=== PATIENT | female | born 1975 | race Caucasian/White ===

== ENCOUNTER 2017-03-03 01:29 | Observation (INO) ==
[2017-03-03] MEDS ORDERED: 0.9 % Sodium Chloride 1,000 ML IVC ONE (01:43)
[2017-03-03] MEDS ORDERED: Insulin Regular, Human 100 UNIT/ML IV ONE (01:43)
[2017-03-03] MEDS ORDERED: Levofloxacin 500 MG/100 ML 500 MG/100 ML BAG IVPB ONE (01:43)
[2017-03-03 01:54] LABS: Hematocrit 41.9 % (35.3-44.9); Hemoglobin 13.8 g/dL (11.5-15.4); Mean Corpuscular HGB Conc 32.9 g/dL (31.6-35.5); Mean Corpuscular Hemoglobin 29.2 pg (28.0-33.3); Mean Corpuscular Volume 88.8 fL (83.0-100.0); Mean Platelet Volume 9.8 fL (9.4-12.4); Platelet Count 169 K/mcL (140-400); Red Blood Count 4.72 M/mcL (3.82-4.97); Red Cell Distribution Width 13.7 % (11.5-14.5)
[2017-03-03 02:01] LABS: Beta-Hydroxybutyric Acid 0.18 mmol/L (0.02-0.27); INR 1.1; Prothrombin Time 12.1 Seconds (9.4-12.1)
[2017-03-03 02:04] LABS: Activated Partial Thrombo Time 28.6 Seconds (26.0-36.0)
[2017-03-03 02:11] LABS: BUN/Creatinine Ratio 13 (6-26); Blood Urea Nitrogen 12 mg/dL (7-20); Calcium 9.3 mg/dL (8.6-10.8); Carbon Dioxide 26 mEq/L (19-29); Chloride 95 mEq/L (98-109); Osmolality,Calculated 307 (280-300); Potassium 4.4 mEq/L (3.5-4.5); Sodium 135 mEq/L (136-145); eGFR For African Americans > 60 (> 60); eGFR For Non-African Americans > 60 (> 60)
[2017-03-03 02:12] LABS: Glucose 580 mg/dL (70-99)
[2017-03-03 02:19] LABS: Anisocytosis 1+ (Not Present); Dohle Bodies Present (Not Present); Lymphocytes # 0.7 K/mcL (0.6-4.6); Neutrophils # 22.8 K/mcL (1.6-8.9)
[2017-03-03 02:20] LABS: Basophilic Stippling 1+ (Not Present)
--- NOTE | 2017-03-03 02:20 | Emergency Department Note ---
Disposition Clinical Impression: Acute exacerbation of chronic obstructive airways disease, Diabetes Disposition: Admitted As Inpatient Condition: Fair Instructions: Emphysema (ED) Referrals: NO,PCP [Primary Care Provider] - Forms: Work/School Release, ED Satisfaction Letter Time of Disposition: 02:25 ([facility] [facility]) SOB HPI - General Chief Complaint: ED General Medical Stated Complaint: high sugar Time Seen by Provider: 03/03/17 01:35 Source: patient Mode of arrival: ambulatory Limitations: no limitations Nursing Notes Reviewed: Yes Vital Signs Reviewed: Yes - History of Present Illness Patient ambulates into the emergency room with increasing shortness of breath that has been going on past couple days patient that today it came at the insistence of family and friends when her glucose was markedly elevated denies though any blurred vision double vision has having elevated sugars having cough congestion and phlegm production weakness nothing else on her normal she denies diarrhea melena hematochezia hematemesis she denies any rashes or lesions patient that was recently diagnosed with diabetes us in 3 months ago some oral hypoglycemics has not been placed on medications and does not have a low reading on her machine since been placed on metformin Pt Subjective Complaint: shortness of breath, pain with inspiration Onset (ago): month(s) Context: other (took glucose and machine read high) Severity: none Consistency/Duration: constant Improves with: nothing Worsens with: nothing Known history of: COPD, recurrent pneumonia Associated symptoms: Reports: cough, sputum production, polyuria, polydipsia. Denies: chest pain, pain with inspiration, fever, wheezing, orthopnea, lower extremity pain, parasthesias, palpitations, hemoptysis, diaphoresis, nausea/ vomiting, syncope, abdominal pain, rash, sense of impending doom Treatment prior to arrival: oxygen, bronchodilator, other Cough present: Yes Cough Description: Involuntary, Productive, Weak, Wheezy Cough Frequency: Continuous Sputum production: Yes Sputum Amount: Small Sputum Color: Yellow, Green - Related Data Home Medications Medication Instructions Recorded Confirmed Albuterol Sulfate [Proair 180 mcg IH Q4H PRN 07/18/15 12/25/16 Respiclick] PredniSONE 30 mg PO DAILY 07/18/15 12/25/16 Ipratropium/Albuterol Neb [Duoneb] 3 ml IH TID 09/12/15 12/25/16 Oxygen 4 l IH AD 09/12/15 12/25/16 Budesonide Neb [Pulmicort Neb] 0.5 mg IH BIDR 05/23/16 12/25/16 Formoterol Fumarate [Perforomist] 20 mcg IH QAM 05/23/16 12/25/16 Fluticasone/Vilanterol [Breo 1 each IH BID 12/25/16 12/25/16 Ellipta 100-25 Mcg INH] Ranitidine HCl [Heartburn Relief] 150 mg PO HS 12/25/16 12/25/16 Lisinopril 03/03/17 Ventolin Hfa 03/03/17 metFORMIN 03/03/17 Allergies Allergy/AdvReac Type Severity Reaction Status Date / Time No Known Allergies Allergy Verified 05/24/16 21:27 Constitutional: Reports: weakness. Denies: fever, chills Eyes: Denies: eye pain, eye discharge ENT ED: Denies: ear pain Cardiovascular: Denies: chest pain, palpitations Respiratory: Reports: cough, wheezes, sputum production. Denies: dyspnea Gastrointestinal: Denies: abdominal pain, nausea Genitourinary: Denies: urgency, dysuria, frequency Musculoskeletal: Denies: back pain, neck pain Integumentary: Denies: rash, abrasion Neurological: Denies: headache, weakness Psychiatric: Denies: anxiety, depression Endocrine: Denies: fatigue Hematological/Lymphatic: Denies: easy bleeding Allergic/Immunologic: Denies: facial swelling Past Medical History - Past Medical History Attestation: Yes The following information was validated with the patient. 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 COORDINATOR history - Social History Smoking Status: Current every day smoker Smokeless Tobacco Status: No Alcohol use: Reports: none Drug use: Reports: none Physical Exam - General Limitations: no limitations General appearance: alert, in no apparent distress, anxious, cachectic - Head Head exam: atraumatic, normocephalic, normal inspection - Eye Eye exam: Present: normal appearance, PERRL, EOMI - ENT ENT exam: normal exam, normal oropharynx, mucous membranes moist, TM's normal bilaterally, normal external ear exam - Neck Neck exam: Present: normal inspection, full ROM, trachea midline - Chest Chest inspection: Present: normal inspection, symmetric chest wall rise - Respiratory Respiratory exam: Present: normal lung sounds bilaterally, wheezes - Cardiovascular Cardiovascular exam: Present: regular rate, normal rhythm, normal heart sounds - Abdominal Exam Abdominal exam: Present: soft, Non-Tender, normal bowel sounds. Absent: mass, pulsatile mass - Extremities Exam Extremities exam: Present: normal inspection, full ROM, normal capillary refill. Absent: tenderness, joint swelling - Expanded Lower Extremity Exam Neurovascular/Tendon exam: Present: normal capillary refill, normal fine/light touch Gait: other (speed of ambulation limited to respitory status ) - Back Exam Back exam: Present: normal inspection, full ROM, other (marked Kyphosis). Absent: muscle spasm - Neurological Exam Neurological exam: Present: alert, oriented X3, CN II-XII intact - Psychiatric Psychiatric exam: Present: normal affect, normal mood - Skin Skin exam: Present: warm, dry, intact, normal color Course Course Narrative: Pt seen and examined and admitted to the services of Dr Christensen due toappearance of Left sided pneumonia Vital Signs Temperature 97.8 F 03/03/17 01:29 Pulse Rate 130 03/03/17 01:29 Respiratory Rate 24 03/03/17 01:29 Blood Pressure 154/86 03/03/17 01:29 O2 Sat by Pulse Oximetry 97 03/03/17 01:29 Temperature 97.8 F 03/03/17 01:29 Pulse Rate 130 03/03/17 01:29 Respiratory Rate 24 03/03/17 01:29 Blood Pressure 154/86 03/03/17 01:29 O2 Sat by Pulse Oximetry 97 03/03/17 01:29 Oxygen Delivery Oxygen Delivery Nasal Cannula Shortness of Breath/Dyspnea - Differential Diagnosis Likely: acute exacerbation of chronic obstructive airways disease, pneumonia, asthma with exacerbation - Medical Records Medical records reviewed: Yes I reviewed the patient's medical records. - Lab Data Lab results reviewed: Yes I reviewed the patient's lab results. Result diagrams: 03/03/17 01:45 03/03/17 01:45 Lab Results 03/03/17 03/03/17 03/03/17 Range/Units 01:45 01:45 01:45 WBC 23.5 H (4.3-11.1) K/mcL RBC 4.72 (3.82-4.97) M/mcL Hgb 13.8 (11.5-15.4) g/dL Hct 41.9 (35.3-44.9) % MCV 88.8 (83.0-100.0) fL MCH 29.2 (28.0-33.3) pg MCHC 32.9 (31.6-35.5) g/dL RDW 13.7 (11.5-14.5) % Plt Count 169 (140-400) K/mcL MPV 9.8 (9.4-12.4) fL PT 12.1 (9.4-12.1) Seconds INR 1.1 APTT 28.6 (26.0-36.0) Seconds Sodium 135 L (136-145) mEq/L Potassium 4.4 (3.5-4.5) mEq/L Chloride 95 L (98-109) mEq/L Carbon Dioxide 26 (19-29) mEq/L BUN 12 (7-20) mg/dL Creatinine 0.96 (0.57-1.11) mg/dL Est GFR ( Amer) > 60 (> 60) Est GFR (Non-Af Amer) > 60 (> 60) BUN/Creatinine Ratio 13 (6-26) Glucose 580 H* (70-99) mg/dL Calculated Osmolality 307 H (280-300) Calcium 9.3 (8.6-10.8) mg/dL Beta-Hydroxybutyric Acd 0.18 (0.02-0.27) mmol/L - Radiology Data Radiology results reviewed: Yes I reviewed the patient's radiology results. Critical Care Time Critical Care Time: No
[2017-03-03 02:21] LABS: Microcytosis Present (Not Present)
[2017-03-03 02:22] LABS: Toxic Granulation Present (Not Present)
[2017-03-03 02:23] LABS: Platelet Estimate Slight Decrease (Normal)
[2017-03-03 02:28] LABS: Bilirubin,Urine Negative (Negative); Blood,Urine Trace-intact (Negative); Clarity,Urine Clear (Clear); Glucose,Urine (UA) 500 mg/dL (Normal); Ketones,Urine Negative (Negative); Leukocyte Esterase,Urine Negative (Negative); Nitrite,Urine Negative (Negative); Protein,Urine Negative (Neg-Trace); Urobilinogen,Urine Normal (Normal)
[2017-03-03 02:32] LABS: Color,Urine Straw (Yellow)
[2017-03-03 02:43] LABS: Squamous Epithelial Cell,Urine Few per lpf (None-Few)
[2017-03-03 02:44] LABS: Bacteria,Urine Few per hpf (None-Few); RBC,Urine 0-3 per hpf (0-3)
[2017-03-03] MEDS ORDERED: *HR* Dextrose 50 % in Water (Syg) 50 ML SYRINGE IVP PRN (03:08)
[2017-03-03] MEDS ORDERED: D5% in Water 1,000 ML IVC PRN (03:08)
[2017-03-03] MEDS ORDERED: Naloxone 0.4 MG/ML INJ IVP PRN (03:08)
[2017-03-03] MEDS ORDERED: 0.9 % Sodium Chloride 1,000 ML IVC SCH (03:08)
[2017-03-03] MEDS ORDERED: Dextrose Gel 15 GM PO PRN ×2 (03:08)
[2017-03-03 03:56] LABS: Hematocrit 38.3 % (35.3-44.9); Hemoglobin 12.4 g/dL (11.5-15.4); Mean Corpuscular HGB Conc 32.4 g/dL (31.6-35.5); Mean Corpuscular Hemoglobin 28.8 pg (28.0-33.3); Mean Corpuscular Volume 88.9 fL (83.0-100.0); Mean Platelet Volume 9.6 fL (9.4-12.4); Platelet Count 142 K/mcL (140-400); Red Blood Count 4.31 M/mcL (3.82-4.97); Red Cell Distribution Width 13.7 % (11.5-14.5)
[2017-03-03 03:59] LABS: BUN/Creatinine Ratio 16 (6-26); Blood Urea Nitrogen 11 mg/dL (7-20); Calcium 8.7 mg/dL (8.6-10.8); Carbon Dioxide 26 mEq/L (19-29); Chloride 101 mEq/L (98-109); Glucose 216 mg/dL (70-99); Osmolality,Calculated 292 (280-300); Potassium 4.1 mEq/L (3.5-4.5); Sodium 138 mEq/L (136-145); eGFR For African Americans > 60 (> 60); eGFR For Non-African Americans > 60 (> 60)
[2017-03-03 04:20] LABS: INR 1.1
[2017-03-03 04:31] LABS: Anisocytosis 1+ (Not Present); Basophilic Stippling 1+ (Not Present); Dohle Bodies Present (Not Present); Lymphocytes # 1.1 K/mcL (0.6-4.6); Monocytes # 0.4 K/mcL (0.0-1.3); Neutrophils # 20.6 K/mcL (1.6-8.9); Platelet Estimate Slight Decrease (Normal)
[2017-03-03 04:32] LABS: Toxic Granulation Present (Not Present)
[2017-03-03 04:33] LABS: Hypochromasia Present (Not Present); Microcytosis Present (Not Present)
[2017-03-03] MEDS: Pantoprazole 40 MG VIAL IVP SCH (06:34)
[2017-03-03] MEDS: Insulin LISPRO 300 UNITS/3 ML VIAL SQ SCH ×3 (07:58→17:50)
[2017-03-03] MEDS: predniSONE 20 MG TABLET PO SCH (07:58)
[2017-03-03 08:25] LABS: Hemoglobin A1C 7.3 %
[2017-03-03] MEDS: PERFOROMIST IH SCH (09:22)
[2017-03-03] MEDS: Budesonide Neb 0.5 MG/2 ML IH SCH ×2 (10:46→22:37)
[2017-03-03] MEDS: Ipratropium/Albuterol Neb 3 ML IH SCH ×2 (10:46→18:30)
--- NOTE | 2017-03-03 15:02 | Internal Med History&Physical ---
Date of Encounter: 03/03/17 Time of Encounter: 14:35 Assessment and Plan (1) Pneumonia Current visit: No Status: Acute She has been started on IV Levaquin. I will add lactobacillus. Will recheck labs in a.m. Qualifiers: Pneumonia type: due to unspecified organism Laterality: right Lung location: lower lobe of lung Qualified Code(s): J18.9 - Pneumonia, unspecified organism (2) COPD (chronic obstructive pulmonary disease) Current visit: Yes Status: Chronic Continue home regiment Qualifiers: COPD type: unspecified COPD Qualified Code(s): J44.9 - Chronic obstructive pulmonary disease, unspecified (3) Diabetes Current visit: Yes Status: Acute We will start Amaryl and Januvia. Continue Accu-Cheks with SSI. 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 Wing is a 42 year old female who came to emergency room stating she had hyperglycemia with blurred vision. Her blood glucose machine at home and unable to give specific value because of blood sugar elevation. She was evaluated in the emergency room and found to have blood sugar 580 mg/dL. She was found to have left lower lobe pneumonia. [facility]. Her respiratory history is significant for Alpha I antitrypsin deficiency. She follows with pulmonologists at [facility] and [facility]. She also has liver cirrhosis from the alpha-1 antitrypsin deficiency and follows with a liver specialist at [facility]. She has smoked cigarettes since age 13 up to 1 pack per day. She has been diagnosed with COPD/emphysema with PFTs done December 2014. She wears oxygen at home at 4 L/m generally 24/7. She states she is being considered for lung transplant because of the emphysema. She states she was diagnosed with DM 2 approximately 6 months ago. Hemoglobin A1c was 7.3% this morning. She denies thyroid disease or hyperlipidemia Past Med Surg Social Fam HX - Past Medical History Medical history: asthma, cirrhosis, COPD, kidney stones, liver disease Psychiatric history: no psych history - Past Surgical History Surgical History: hysterectomy - Social History Smoking Status: Current every day smoker Packs per day: 3 cigarettes day Smokeless Tobacco Status: No Alcohol use: none Drug use: none - Family History Mother Living Status: Cause of : OD Hx Family Reproductive Disorders: Yes (uterine cancer) Internal Medicine - H&P: Meds Albuterol Sulfate [Proair Respiclick] 180 mcg IH Q4H PRN 07/18/15 [History] PredniSONE 30 mg PO DAILY 07/18/15 [History] Ipratropium/Albuterol Neb [Duoneb] 3 ml IH TID 09/12/15 [History] Oxygen 4 l IH AD 09/12/15 [History] Budesonide Neb [Pulmicort Neb] 0.5 mg IH BIDR 05/23/16 [History] Formoterol Fumarate [Perforomist] 20 mcg IH QAM 05/23/16 [History] Fluticasone/Vilanterol [Breo Ellipta 100-25 Mcg INH] 1 each IH BID 12/25/16 [ History] Ranitidine HCl [Heartburn Relief] 150 mg PO HS 12/25/16 [History] Lisinopril 03/03/17 [History] Ventolin Hfa 03/03/17 [History] metFORMIN 03/03/17 [History] Allergies No Known Allergies Allergy (Verified 03/03/17 02:56) All Systems PM: A 10-system review of systems was performed and is negative for pertinent findings except as documented above in the HPI. Review of systems: Review of systems from her May [facility] hospitalization were reviewed and revised as below. Gen.: Her weight is decreased from 59.103 kg at the July 2015 hospitalization and 62.596 kg. at the May 2016 hospitalization to 57.198 kg at present. Cardiovascular: She denies NE hypertension and heart failure angina DVT or pulmonary embolus Respiratory: As per history of present illness GI: She has had gallstones in the past. She has GERD. She had hepatitis C which she states was congenital. She states she has been treated for hepatitis C with antiviral agents and she now is seronegative. She has cirrhosis felt to be due to to damage from alpha-1 antitrypsin deficiency. She does not drink alcohol. She states her cirrhosis is not advanced to be considered yet for liver transplantation. She had an umbilical hernia with surgical repair August 2015. She denies disorders of her exocrine pancreas. : No history of hematuria or dysuria. She had a right punctate kidney stone seen on CT scan done in the emergency room at the August 2015 visit. Neurologic: No history of large distribution strokes or seizures. Endocrine: As per history of present illness Hematology/oncology: She has thrombocytopenia felt to be secondary to the cirrhosis. She has no other blood disorders or internal cancers known. Psychiatric: She denies anxiety depression or other mental health issues Musk skeletal: She denies arthritis gout or osteoporosis - Constitutional Vitals: Temp Pulse Resp BP Pulse Ox 98.4 F 116 22 125/81 100 03/03/17 11:00 03/03/17 11:00 03/03/17 11:00 03/03/17 11:03/03/17 11:00 Exam: Gen.: She is well-developed well-nourished female appears in minimal distress at present time HEENT: Head is atraumatic and normocephalic. Eyes: EOMI. There is no scleral icterus. Mouth: Mucosa is moist. Neck: Supple and nontender. There is no thyromegaly or adenopathy noted. Heart: Regular without murmurs gallops or ectopics Lungs: She has diminished breath sounds bilaterally. No wheezes or crackles are heard. Abdomen: Soft and nontender. No masses or guarding are noted. Extremities: She has ecchymosis of various stages on her arms. She has 2+ edema of the lower legs bilaterally including the dorsum of the feet. Dorsalis pedis and posterior tibial pulses are nonpalpable. Neurologic: Mental status: She is talkative and a good historian. Cranial nerves: Smile is symmetric. Forehead wrinkles bilaterally. Tongue protrudes midline. EOMI. Motor: There is no pronator drift. Cerebellar: Finger to nose is intact bilaterally. Skin: Warm and dry Internal Med - H&P Results - Labs CBC & Chem 7: 03/03/17 03:28 03/03/17 03:28 Labs: Short CBC 03/03/17 Range/Units 03:28 WBC 22.1 H (4.3-11.1) K/mcL Hgb 12.4 (11.5-15.4) g/dL Hct 38.3 (35.3-44.9) % Plt Count 142 (140-400) K/mcL Neutrophils # 20.6 H (1.6-8.9) K/mcL BMP 03/03/17 03:28 Sodium 138 Potassium 4.1 Chloride 101 Carbon Dioxide 26 BUN 11 Creatinine 0.69 Glucose 216 H Calcium 8.7
[2017-03-03] MEDS: *HR* Glimepiride 2 MG TABLET PO SCH (15:22)
[2017-03-03] MEDS: *HR* SitaGLIPtin 25 MG TABLET PO SCH (15:37)
[2017-03-03] MEDS: Furosemide 20 MG/2 ML VIAL IVP SCH (17:50)
[2017-03-03] MEDS: Nicotine 21 MG PATCH.TD24 TD SCH (17:50)
[2017-03-03] MEDS: Lactobacillus 1 EACH CAP.SPRINK PO SCH (20:46)
[2017-03-03] MEDS ORDERED: Famotidine 20 MG TABLET PO SCH (21:00)
[2017-03-03] MEDS ORDERED: Insulin LISPRO 300 UNITS/3 ML VIAL SQ SCH (21:00)
[2017-03-04] MEDS: Ipratropium/Albuterol Neb 3 ML IH SCH ×2 (02:22→10:16)
[2017-03-04] MEDS ORDERED: Levofloxacin 750 MG/150 ML 750 MG/150 ML BAG IVPB SCH (03:00)
[2017-03-04] MEDS: Pantoprazole 40 MG VIAL IVP SCH (05:19)
[2017-03-04 05:21] LABS: Basophils % 0.1 %; Eosinophils # 0.1 K/mcL (0.0-0.6); Eosinophils % 0.4 %; Hematocrit 37.8 % (35.3-44.9); Hemoglobin 12.3 g/dL (11.5-15.4); Immature Granulocytes % 0.6 % (0-4); Lymphocytes # 1.8 K/mcL (0.6-4.6); Lymphocytes % 11.6 %; Mean Corpuscular HGB Conc 32.5 g/dL (31.6-35.5); Mean Corpuscular Hemoglobin 28.9 pg (28.0-33.3); Mean Corpuscular Volume 88.9 fL (83.0-100.0); Mean Platelet Volume 9.8 fL (9.4-12.4); Monocytes # 1.1 K/mcL (0.0-1.3); Neutrophils # 12.6 K/mcL (1.6-8.9); Platelet Count 158 K/mcL (140-400); Red Blood Count 4.25 M/mcL (3.82-4.97); Red Cell Distribution Width 14.1 % (11.5-14.5); Segmented Neutrophils % 80.3 %
[2017-03-04 05:42] LABS: Alanine Aminotransferase 40 Units/L (0-55); Albumin 2.6 g/dL (3.5-5.0); Albumin/Globulin Ratio 0.7 (1.1-2.2); Alkaline Phosphatase 246 Units/L (38-126); Aspartate Amino Transferase 23 Units/L (5-34); BUN/Creatinine Ratio 15 (6-26); Bilirubin,Total 0.3 mg/dL (0.2-1.2); Blood Urea Nitrogen 10 mg/dL (7-20); Calcium 8.8 mg/dL (8.6-10.8); Carbon Dioxide 32 mEq/L (19-29); Chloride 101 mEq/L (98-109); Globulin 3.6 g/dL (2.4-3.5); Glucose 184 mg/dL (70-99); Osmolality,Calculated 296 (280-300); Potassium 3.7 mEq/L (3.5-4.5); Sodium 141 mEq/L (136-145); Total Protein 6.2 g/dL (6.0-8.3); eGFR For African Americans > 60 (> 60); eGFR For Non-African Americans > 60 (> 60)
[2017-03-04 06:50] VITALS: BP 125/84
[2017-03-04] MEDS: predniSONE 20 MG TABLET PO SCH (10:00)
[2017-03-04] MEDS: *HR* SitaGLIPtin 25 MG TABLET PO SCH (10:00)
[2017-03-04] MEDS: Lactobacillus 1 EACH CAP.SPRINK PO SCH (10:00)
[2017-03-04] MEDS: *HR* Glimepiride 2 MG TABLET PO SCH (10:00)
[2017-03-04] MEDS: Furosemide 20 MG/2 ML VIAL IVP SCH (10:01)
[2017-03-04] MEDS: Nicotine 21 MG PATCH.TD24 TD SCH (10:01)
[2017-03-04] MEDS: PERFOROMIST IH SCH (10:01)
--- NOTE | 2017-03-04 10:09 | Discharge Summary ---
Date of Encounter: 03/04/17 Time of Encounter: 09:55 - Discharge Diagnosis (1) Pneumonia Priority: Primary Status: Acute Qualifiers: Pneumonia type: due to unspecified organism Laterality: right Lung location: lower lobe of lung Qualified Code(s): J18.9 - Pneumonia, unspecified organism (2) COPD (chronic obstructive pulmonary disease) Priority: Secondary Status: Chronic Qualifiers: COPD type: unspecified COPD Qualified Code(s): J44.9 - Chronic obstructive pulmonary disease, unspecified (3) Diabetes Priority: Secondary Status: Chronic Qualifiers: Diabetes mellitus type: type 2 Diabetes mellitus complication status: with unspecified complications 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 use Qualified Code(s): E11.8 - Type 2 diabetes mellitus with unspecified complications - Discharge Medications Prescriptions: Bumetanide [Bumex] 1 mg PO DAILY #30 tablet Glimepiride [Amaryl] 1 mg PO DAILY #30 tablet Lactobacillus [Culturelle] 1 each PO BID #6 cap.sprink levoFLOXacin [Levaquin] 500 mg PO DAILY #3 tablet Potassium Chloride 10 meq PO DAILY #30 tab.er.prt Sitagliptin Phosphate [Januvia] 50 mg PO DAILY #30 tab Home Medications: Albuterol Sulfate [Proair Respiclick] 180 mcg IH Q4H PRN 07/18/15 [History] PredniSONE 30 mg PO DAILY 07/18/15 [History] Ipratropium/Albuterol Neb [Duoneb] 3 ml IH TID 09/12/15 [History] Oxygen 4 l IH AD 09/12/15 [History] Budesonide Neb [Pulmicort Neb] 0.5 mg IH BIDR 05/23/16 [History] Formoterol Fumarate [Perforomist] 20 mcg IH QAM 05/23/16 [History] Fluticasone/Vilanterol [Breo Ellipta 100-25 Mcg INH] 1 each IH BID 12/25/16 [ History] Ranitidine HCl [Heartburn Relief] 150 mg PO HS 12/25/16 [History] Lisinopril 03/03/17 [History] Ventolin Hfa 03/03/17 [History] metFORMIN 03/03/17 [History] Bumetanide [Bumex] 1 mg PO DAILY #30 tablet 03/04/17 [Rx] Glimepiride [Amaryl] 1 mg PO DAILY #30 tablet 03/04/17 [Rx] Lactobacillus [Culturelle] 1 each PO BID #6 cap.sprink 03/04/17 [Rx] Potassium Chloride 10 meq PO DAILY #30 tab.er.prt 03/04/17 [Rx] Sitagliptin Phosphate [Januvia] 50 mg PO DAILY #30 tab 03/04/17 [Rx] levoFLOXacin [Levaquin] 500 mg PO DAILY #3 tablet 03/04/17 [Rx] Allergies/Adverse Reactions: Allergies No Known Allergies Allergy (Verified 03/03/17 02:56) Date of admission: 03/03/17 02:43 Primary care physician: Gianluca Harris M.D. Consults: 03/03/17 03:22 Consult to Nutrition [CONS] Routine Comment: Consulting Provider: NUTRITION Reason for Dietary Consult: MST Score - Patient Status Disposition: Home, Self-Care Condition: Fair Functional capacity at discharge: independent ambulation Overall status at discharge: patient is progressing back to baseline - Discharge Instructions Follow Up With: Gianluca Harris MD [Partnered Physician] - 1 week - Diet and Activity Activity: resume usual activities as tolerated, wear oxygen at all times Diet: diabetic diet Hospital course: Ms. Wing is a 42 year old female who came to emergency room stating she had hyperglycemia with blurred vision. Her blood glucose machine at home and unable to give specific value because of blood sugar elevation. She was evaluated in the emergency room and found to have blood sugar 580 mg/dL. She was found to have left lower lobe pneumonia. She was admitted to [facility] floor for ongoing care needs. Initial orders were written by the emergency room physician. I saw her on March 03 and performed the history and physical. She was started on IV Levaquin. I added lactobacillus. Follow-up labs on March 04 showed WBC decreased to 15.7 with significant improvement in the left shift and resolution of bandemia. She felt clinically improved when I saw her March 04. She had remained afebrile. She wished to be discharged which I felt was reasonable. She will continue with antibiotic and probiotic for 3 additional days at discharge. I started her on Amaryl and Januvia during hospitalization. Her blood sugars return to a safe range. She will continue these at discharge. She was given IV Lasix for her edema during hospitalization. She had improvement and will continue oral Bumex with KCl at discharge. She will follow with her PCP Dr. Harris within 1 week. I encouraged her to discontinue smoking. - Time Spent with Patient Total time spent providing and/or coordinating discharge services: - Constitutional Vitals: Temp Pulse Resp BP Pulse Ox 98 F 106 14 125/84 100 03/04/17 06:49 03/04/17 06:49 03/04/17 06:49 03/04/17 06:49 03/04/17 06:49
[2017-03-04] MEDS: Budesonide Neb 0.5 MG/2 ML IH SCH (10:39)
== END 2017-03-04 11:40 | disposition home or self-care (01) ==
LOC: EMEROOPIK 01:29 → INPPIK 01:29
PROVIDERS: ADMIT Internal Medicine; ATTEND Internal Medicine